=== PATIENT | female | born 2000 | race Caucasian/White ===

== ENCOUNTER 2023-11-09 02:36 | Emergency (ER) | payer OTHER ==
[~2023-11-09] VITALS: Ht 152.4 cm; Wt 60.0 kg
[2023-11-09 02:55] VITALS: O2SAT 98
[2023-11-09] MEDS: ACETAMINOPHEN 325MG TABLET PO ONE (03:30)
[2023-11-09] MEDS ORDERED: ACETAMINOPHEN 325MG TABLET PO NR (06:30)
[2023-11-09 09:08] VITALS: BP 97/64; PULSE 97; RESP 16; TEMP 98.8
== END 2023-11-09 09:33 | disposition home or self-care (01) ==
LOC: ER 02:36
DX: O9A.212 Injury, poisoning and certain other consequences of external causes complicating pregnancy, second trimester (principal); O26.892 Other specified pregnancy related conditions, second trimester; S05.12XA Contusion of eyeball and orbital tissues, left eye, initial encounter; Z3A.25 25 weeks gestation of pregnancy; Y04.0XXA Assault by unarmed brawl or fight, initial encounter; Y93.89 Activity, other specified; Y92.89 Other specified places as the place of occurrence of the external cause; Y99.8 Other external cause status
CPT/HCPCS: 99285